=== PATIENT | male | born 1950 | race Caucasian/White ===

== ENCOUNTER 2018-01-31 04:03 | Inpatient (IN) | payer OTHER ==
[~2018-01-31] VITALS: Ht 180.3 cm; Wt 83.9 kg
[~2018-01-31 04:03] MED LIST: ASPIRIN EC325 M2 PO; COLACE100 M1 PO; DILAUDID2 M1 PO; FLOMAX0.4 M1 PO; GABAPENTIN600 M1 PO; MIRALAX17 G1 PO; MS CONTIN15 M2 PO; REQUIP2 M1 PO; ROPINIROLE ER2 MG PO; TOPROL XL50 M1 PO
--- NOTE | 2018-01-31 10:47 | Admission Core Measures ---
Acute Coronary Syndrome (CM) ACS Core Measures Acute Coronary Syndrome Diagnosis No Congestive Heart Failure (NEW) CHF Core Measures Congestive Heart Failure Diagnosis No Cerebrovascular Accident (NEW) CVA Core Measures CVA/TIA Diagnosis No Venous Thromboembolism VTE Core Monica (View Protocol) VTE Risk Factors Surgery No Mechanical VTE Prophylaxis d/t N/A MechProphylax Ordered No VTE Pharm Prophylaxis d/t NA PharmProphylax ordered Problem List As ranked by this Provider includes Assessment & Plan 1. Primary osteoarthritis of right hip HOME MEDS Home Med List Metoprolol Succ XL (Toprol Xl) 50 MG TAB 1 MG PO DAILY HTN (Reported) Ropinirole HCl (Ropinirole ER) 2 MG TAB.ER.24H 1 TAB PO TID RLS (Reported) Tamsulosin HCl (Flomax) 0.4 MG CAP.ER.24H 1 CAP PO QHS BPH (Reported)
--- NOTE | 2018-01-31 11:01 | Surg Short-stay <48hrs Dis Sum ---
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 Procedure was tolerated well and patient was transferred to a general surgical floor. Diet was advanced and tolerated. Physical therapy performed evaluation and treatment. At time of hospital discharge, vital signs were stable, neurovascular status was intact, and pain was controlled with the use of oral pain medications. Condition at Discharge: Stable Discharge Disposition: home health services Discharge instructions provided to patient/family: Yes Post discharge follow-up plan: Follow up with Dr. Osullivan in 6 weeks from date of surgery. Please call his office to schedule/confirm this appointment.
--- NOTE | 2018-01-31 11:34 | Patient Discharge Instructions ---
Discharge Instructions General Discharge Information You were seen/treated for: pain related to failed right hip replacement You had these procedures: Revision right total hip arthroplasty Watch for these problems: Increasing pain despite the use of pain medication Increasing redness, warmth or swelling Drainage of any type from incision Inability to bear weight on operative leg Persistent nausea and vomiting Fever greater than 101.5 degrees Other wound care: Please keep wound clean and dry. No ointments or lotions of any type on or near incision. Your dressing will be changed by your nurse on the second day after your surgery. Daily dry dressing changes are recommended each day thereafter. You may shower 48hr after surgery. Do not soak your wound- no tub baths or swimming. Special Instructions: Aspirin: You are taking this medication to help prevent blood clot formation. Please take with food to protect your stomach lining. Take as directed. Protonix (pantoprazole): Take this medication to protect your stomach lining while taking high dose NSAIDs. Constipation: Pain medication can cause constipation. It is recommended that you take Colace and miralax daily. You may discontinue this medication if you develop loose stool or diarrhea. If you wish to continue this medication, it is available over the counter. If you are unable to move your bowels or pass gas after several days, please contact your doctor. Diet Recommended Diet: Regular Activity Activity Limited to: Weight bear as tolerated Additional ACTIVITY Info: Use assistive devices as needed Acute Coronary Syndrome Inclusion Criteria At DC or during hospital stay patient has or had the following: ACS DIAGNOSIS No Discharge Core Measures Meds if any: Prescribed or Continued at Discharge Meds if any: NOT Prescribed or Continued at Discharge Congestive Heart Failure Inclusion Criteria At DC or during hospital stay patient has or had the following: CHF DIAGNOSIS No Discharge Core Measures Meds if any: Prescribed or Continued at Discharge Meds if any: NOT Prescribed or Continued at Discharge Cerebrovascular accident Inclusion Criteria At DC or during hospital stay patient has or had the following: CVA/TIA Diagnosis No Discharge Core Measures Meds if any: Prescribed or Continued at Discharge Meds if any: NOT Prescribed or Continued at Discharge Venous thromboembolism Inclusion Criteria VTE Diagnosis No VTE Type NONE VTE Confirmed by (Test) NONE Discharge Core Measures - Per Current guidelines, there needs to be overlap - treatment for the first 5 days of Warfarin therapy. - If discharged on Warfarin prior to 5 days of - overlap therapy, the patient will need to be - assessed for post discharge needs including - *Post discharge parental anticoagulation - *Warfarin and/or parental anticoagulation education - *Follow up date to check INR post discharge At least 5 days overlap therapy as Inpatient No Meds if any: Prescribed or Continued at Discharge Note: Overlap Therapy is Warfarin and Anticoagulant Meds if any: NOT Prescribed or Continued at Discharge
[2018-01-31] MEDS ORDERED: PROTONIX20 M1 PO (11:36)
[2018-01-31] MEDS ORDERED: ASPIRIN EC325 M2 PO (11:36)
[2018-01-31] MEDS ORDERED: DILAUDID2 M1 PO (11:36)
[2018-01-31] MEDS ORDERED: COLACE100 M1 PO (11:36)
[2018-01-31] MEDS ORDERED: MIRALAX17 G1 PO (11:36)
--- NOTE | 2018-01-31 14:54 | Operative Report ---
Operative/Inv Procedure Report Surgery Date: 01/31/18 Name of Procedure: Right total hip revision Pre-Operative Diagnosis: Failed right hip replacement Post-Operative Diagnosis: Same Estimated Blood Loss: 600 Surgeon/Excel Analyst: Shi PETER,Alonso Potts Anesthesia: block Operative/Procedure Note Note: Indications: The patient has a history of a right total hip replacement. She does to have rather consistent pain. He was having classical first step pain. Description of Procedure: The patient was taken to the operating room and positively identified. After induction of spinal anesthesia and administration of appropriate pre-operative antibiotics, the patient was positioned supine on the operating room table and all bony prominences were well padded. After performing a surgical timeout, the right lower extremity was prepped and draped in the usual sterile fashion. Utilizing the previous incision, a direct anterior approach was made to the IT hip. The incision was carried sharply through superficial soft tissues to the level of the fascia. Meticulous hemostasis was maintained with Bovie electocautery. The fascia over the tensor fascia shantelle muscle was opened sharply and the interval between the TFL and the sartorius was entered bluntly taking care to stay lateral to the lateral femoral cutaneous nerve. Retractors were placed around the femoral neck. The anterior pseudocapsule was resected. Samples of capsule were sent for microbiologic analysis. The femur was mobilized by resecting circumferential scar tissue until the hip could be dislocated. Once the hip was dislocated the femoral head was disimpacted from the trunnion. On close inspection the did appeared to be very subtle micromotion when the trunnion was manipulated. The stem was not grossly loose however. The acetabular component was also inspected and found to be well fixed. It was then returned to the femur. After extensive ligament releases the proximal femur was delivered. A Dall-Miles cable was placed just proximal to the lesser trochanter in order to prevent fracture while the stem was being removed. A high-speed bur was used to disrupt the proximal bone prosthesis interface. Flexible osteotomes were then used to disrupt the remainder of the bone prosthesis interface in all directions. The stem was then back slapped out of the femur. There was bone ingrowth proximally, but distally there did not appear to be any bone ingrowth. Wound bed was then copiously irrigated. The femur was then prepared for a Darby pentecostalism modular revision hip stem. The canal was reamed distally to accept a 16 mm x 155 mm pentecostalism modular distal conical stem. This was impacted into place. The proximal femur was prepared to accept a 23 mm +0 cone body. This was then trialed for leg length and stability. The trial cone body was removed and the final cone body was impacted into place. The torque bolt was tightened to specification. The trunnion was well cleaned and fit with a 36 mm +0 Biolox delta ceramic femoral head. The hip was reduced and put through a full range motion found to be quite stable. The articular space was then irrigated with sterile saline. The periarticular soft tissues were infilitrated with Marcaine. The fascial layer was closed with interrupted #1 vicryl suture and the skin was re-approximated with interrupted 2 -0 vicryl. The skin was closed with a running 3-0 V-Lock suture. Steri-strips and a sterile dressing were applied. The patient was awakened and taken to the recovery room in satisfactory condition.
[2018-01-31] MEDS ORDERED: ADULT LOW DOSE81 MG PO (15:35)
[2018-01-31] MEDS ORDERED: INDOMETHACIN25 M1 PO (15:35)
--- NOTE | 2018-01-31 16:14 | RADIOLOGY REPORT ---
EXAMINATION: XR HIP, RIGHT CLINICAL INFORMATION: Right hip replacement. COMPARISON: 08/09/2017. TECHNIQUE: AP and crosstable lateral views of the right hip. FINDINGS: A right hip prosthesis is intact without failure or migration. A drain is in place. IMPRESSION: Expected postoperative appearance status post right hip prosthesis placement.
[2018-01-31 17:10] VITALS: BP 112/62
[2018-01-31 18:00] VITALS: BP 140/70
--- NOTE | 2018-01-31 19:05 | PN- Orthopedic ---
Subjective Subjective: POC Pt seen by BRYNN Alejandre, offered no compaints other than no void postop Objective Vital Signs and I&Os Vital Signs Date Time Temp Pulse Resp B/P B/P Pulse O2 O2 Flow FiO2 Mean Ox Delivery Rate 01/31 1800 97.6 73 18 140/70 93 Room Air 01/31 1710 97.0 61 18 112/62 95 Room Air 01/31 1710 97.0 61 18 112/62 95 Room Air Physical Exam: Per BRYNN Alejandre: gross sensate/motor intact bl le. HV with 30cc serosang drainage Assessment/Plan Assessment/Plan POD0 sp revision R VI, stable, DTV postop, PMHx bph. P- flomax now. check bladder scan ?ochoa if retention remains issue ASA 81mg BID x3 weeks postop Indocin 25mg TID x10d postop prn pain meds oob, pt, wbat home meds dc planning Core Measures Venous Thromboembolism VTE Risk Factors Surgery No Mechanical VTE Prophylaxis d/t N/A MechProphylax Ordered No VTE Pharm Prophylaxis d/t NA PharmProphylax ordered
[2018-01-31 20:00] VITALS: BP 142/80
[2018-01-31 22:00] VITALS: BP 120/76
[2018-02-01 01:55] VITALS: BP 130/80
[2018-02-01 06:00] VITALS: BP 158/84
--- NOTE | 2018-02-01 09:18 | PN- Orthopedic ---
Subjective Subjective: pt in bed, pain controlled. tolerating diet. denies cp/sob,fevers. denies paresthesias Pt ready to work with PT, agrees to plan to remove ochoa, will bladdewr scan if no void. Objective Vital Signs and I&Os Vital Signs Date Time Temp Pulse Resp B/P B/P Pulse O2 O2 Flow FiO2 Mean Ox Delivery Rate 02/01 0600 98.5 80 18 158/84 92 Room Air 02/01 0155 98.4 83 18 130/80 94 Room Air 01/31 2200 98.1 66 18 120/76 94 Room Air 01/31 2053 Room Air 01/31 2000 98.4 74 18 142/80 93 Room Air 01/31 1953 70 150/90 01/31 1800 97.6 73 18 140/70 93 Room Air 01/31 1710 97.0 61 18 112/62 95 Room Air 01/31 1710 97.0 61 18 112/62 95 Room Air Intake & Output 02/01 1600 02/01 0800 02/01 0000 01/31 1600 01/31 0800 01/31 0000 Intake Total 765 425 Output Total 500 2600 Balance 265 -2175 Intake, IV 525 225 Intake, Oral 240 200 Number 0 0 Bowel Movements Output, 100 150 Drainage Output, Urine 400 2450 Patient 185 lb 185 lb Weight Weight Bed scale Measurement Method Physical Exam: gen- NAD resp- clear cardiac-RRR abd- soft, NT ext- R hip soft, dressing dry, no calf tenderness. distal sensory and motor function intact Current Medications: Current Medications Sig/Adamaris Start time Last Medication Dose Route Stop Time Status Admin Acetaminophen 650 MG Q4P PRN 01/31 1630 AC 01/31 PO 1957 Acetaminophen 0 .STK-MED ONE 01/31 1111 DC PO Acetaminophen 975 MG ONCE 01/31 0000 DC PO 01/31 2359 Aspirin 81 MG BID 01/31 2100 AC 01/31 PO 2103 Cefazolin Sodium 2 GM IQ8 02/01 0400 DC 02/01 N/A 1 UNIT IV 02/01 0429 0345 Cefazolin Sodium 2 GM IQ8 01/31 1600 DC 01/31 N/A 1 UNIT IV 02/01 0029 1945 Cefazolin Sodium 2,000 MG ONCE 01/31 0000 DC IV 01/31 2359 Dexamethasone 4 MG .STK-MED ONE 01/31 1046 DC IM 01/31 1047 Dextrose/Sodium 1,000 ML .[id number] 01/31 1630 AC 02/01 Chloride IV 0359 Docusate Sodium 100 MG BID 01/31 2100 AC 01/31 PO 210 Fentanyl Citrate 100 MCG .STK-MED ONE 01/31 1045 DC IM 01/31 1046 Hydromorphone HCl 2 MG Q4P PRN 01/31 1630 AC 01/31 PO 1742 Hydromorphone HCl 4 MG Q4P PRN 01/31 1630 AC 02/01 PO 0358 Indomethacin Sodium 25 MG TID 01/31 2100 AC 01/31 PO 2105 Metoprolol Succinate 50 MG DAILY 02/01 0900 DC PO Metoprolol Succinate 50 MG DAILY 02/01 0900 AC PO Midazolam HCl 2 MG .STK-MED ONE 01/31 1045 DC IM 01/31 1046 Morphine Sulfate 2 MG Q2P PRN 01/31 1630 AC 02/01 IV 0552 Omeprazole 20 MG DAILY AC 02/01 0700 AC 02/01 PO 0552 Ondansetron HCl 4 MG Q6P PRN 01/31 1630 AC IV Oxycodone HCl 0 .STK-MED ONE 01/31 1110 DC PO Oxycodone HCl 10 MG ONCE 01/31 0000 DC PO 01/31 2359 Polyethylene Glycol 17 GM DAILY 02/01 0900 AC PO Promethazine HCl 12.5 MG Q6P PRN 01/31 1630 AC IV 02/07 1044 Ropinirole HCl 2 MG TID 01/31 2100 AC 01/31 PO 210 Ropinirole HCl 2 MG TID 01/31 1400 DC PO Tamsulosin HCl 0.4 MG AT BEDTIME 01/31 2100 DC PO Tamsulosin HCl 0.4 MG AT BEDTIME 01/31 2100 DC PO Tamsulosin HCl 0.4 MG AT BEDTIME 01/31 1915 AC 01/31 PO 1953 Tranexamic Acid 1,000 MG .STK-MED ONE 01/31 1045 DC IV 01/31 1046 Results Last 48 Hours of Labs: Laboratory Tests 02/01 0650 Chemistry Sodium Pending Potassium Pending Chloride Pending Carbon Dioxide Pending Anion Gap Pending BUN Pending Creatinine Pending BUN/Creatinine Ratio Pending Hematology CBC w Diff Pending WBC Pending RBC Pending Hgb Pending Hct Pending MCV Pending MCH Pending MCHC Pending RDW Pending Plt Count Pending MPV Pending Assessment/Plan Assessment/Plan 67yo M POD1 sp revision R VI, stable. P- dc IVF, reg diet DC OCHOA, check bladder scan if unable to void ASA 81mg BID x3 weeks postop Indocin 25mg TID x10d postop PT- WBAT with rolling walker hemovac in place prn pain meds oob, pt, wbat home meds Core Measures Venous Thromboembolism VTE Risk Factors Surgery No Mechanical VTE Prophylaxis d/t N/A MechProphylax Ordered No VTE Pharm Prophylaxis d/t NA PharmProphylax ordered
[2018-02-01 09:31] LABS: ABSOLUTE BASOPHIL COUNT 0 /CUMM (0.0-0.2); ABSOLUTE EOSINOPHIL COUNT 0.1 /CUMM (0.0-0.7); HEMATOCRIT 37.3 % (42-52); MEAN CORPUSCULAR HGB CONC 33.6 G/DL (33.0-37.0)
[2018-02-01 09:55] LABS: ABSOLUTE GRANULOCYTE CT 7.9 /CUMM (1.4-6.5); BASOPHIL % 0.2 % (0.0-2.0); EOSINOPHIL % 0.9 % (0-5); GRANULOCYTE % 78.8 % (42.2-75.2); MEAN CORPUSCULAR HGB 30.4 PG (27.0-31.0); MEAN CORPUSCULAR VOLUME 90.5 FL (80.0-94.0); MEAN PLATELET VOLUME 11.2 FL (7.4-10.4); RBC DISTRIBUTION WIDTH 14.5 % (11.5-14.5); RED BLOOD CELL CT 4.12 /CUMM (4.70-6.10)
[2018-02-01 10:13] VITALS: BP 130/90
[2018-02-01 10:36] LABS: PLATELET COUNT 74 /CUMM (130-400)
[2018-02-01 13:45] VITALS: BP 160/80
[2018-02-01 19:12] VITALS: BP 140/60
[2018-02-01 22:05] VITALS: BP 148/80
[2018-02-02 02:04] VITALS: BP 136/92
[2018-02-02 06:38] VITALS: BP 120/64
--- NOTE | 2018-02-02 09:45 | PN- Orthopedic ---
Subjective Subjective: feeling good, pain controlled, up with pt this am- cleared for hhs dc. some bloody drainage from incision/drain site overnight/this am. no dizziness/sob/cp/ n/v Objective Vital Signs and I&Os Vital Signs Date Time Temp Pulse Resp B/P B/P Pulse O2 O2 Flow FiO2 Mean Ox Delivery Rate 02/02 0638 97.5 78 20 120/64 95 Room Air 02/02 0204 97.7 65 20 136/92 95 Room Air 02/01 2205 98.1 64 18 148/80 94 Room Air 02/01 2050 80 128/80 02/01 1912 97.9 74 20 140/60 95 Room Air 02/01 1345 98.6 68 20 160/80 94 Room Air 02/01 1013 97.7 77 20 130/90 95 Room Air Intake & Output 02/02 1600 02/02 0800 02/02 0000 02/01 1600 02/01 0800 02/01 0000 Intake Total 893 687 1342 765 425 Output Total 10 300 7956 350 3284 Balance 470 60 -250 265 -2175 Intake, IV 525 225 Intake, Oral 221 044 4706 240 200 Number 0 0 Bowel Movements Output, 10 100 250 100 150 Drainage Output, Urine 200 0465 155 6148 Patient 185 lb 185 lb Weight Weight Bed scale Measurement Method Physical Exam: gen- nad card-s1s2 pulm- no audible wheeze ext- r hip dressing w serosang drainage, steris blood stained. HV in place, 10cc out overnight- pulled. +serosang ooze from drain site, no active bleeding. redressed. calves soft nt bl, gross motor/sensate intact, +dp Assessment/Plan Assessment/Plan A- POD2 sp revision R VI, with some serosang ooze from drain site, otherwise stable. P- prn po pain meds ASA 81bid x3wk indocin 25tid x10d oob, wbat diet as tolerated bowel regimen dc planning will dw attending Core Measures Venous Thromboembolism VTE Risk Factors Surgery No Mechanical VTE Prophylaxis d/t N/A MechProphylax Ordered No VTE Pharm Prophylaxis d/t NA PharmProphylax ordered
[2018-02-02 11:37] VITALS: BP 140/80
== END 2018-02-02 12:17 | disposition home health service (06) | DRG 468 ==
LOC: 2NA 04:03 → SDA 04:03 → ENRESERV 15:36 → ENTRNSPT 15:56 → EDTRNSPT 16:11 → EDTRNSPTSTS 16:11 → 2NA 16:24 → CMPTRNSPT 16:30 → ENPENDDIS 02-02 09:24 → 2NA 02-02 12:17
PROVIDERS: Physician Assistant Surgical
PROC: 0SPR0JZ Removal of Synthetic Substitute from Right Hip Joint, Femoral Surface, Open Approach (ICD-10-PCS; principal; 2018-01-31)
PROC: 0SRR03A Replacement of Right Hip Joint, Femoral Surface with Ceramic Synthetic Substitute, Uncemented, Open Approach (ICD-10-PCS; principal; 2018-01-31)
DX: T84.030A Mechanical loosening of internal right hip prosthetic joint, initial encounter (principal); G25.81 Restless legs syndrome; I10 Essential (primary) hypertension; N40.0 Benign prostatic hyperplasia without lower urinary tract symptoms; M16.11 Unilateral primary osteoarthritis, right hip; Z98.1 Arthrodesis status; Z90.79 Acquired absence of other genital organ(s)
CPT/HCPCS: 2NASP; 87070; 87075; 36415; 36592; 73502-RT; 82436; 87086; 97110-GO; 97116-GO; 97161-GP; J0690; J0735; J1100; J2405; J2550; J3370; J3490; J7042